=== PATIENT | female | born 1990 | race Two or more races ===

== ENCOUNTER 2024-12-11 13:33 | Outpatient (AMB) | payer OTHER, SELFPAY ==
--- NOTE | 2024-12-11 13:17 | MHC.PC.OV ---
Vital Signs 12/11/24 13:31 Height 5 ft 4.57 in Weight 121 lb 4 oz BMI 20.4 BP 86/62 L Blood Pressure Location Lt brachial Position Sitting Respiration 12 Pulse 86 Pulse Source Pulse Oximeter Temp 98.8 F Temp Source Oral Pulse Oximetry (%) 96 Oxygen Delivery Method Room Air Intake Visit Reasons: [employer] issues Intake Note: New patient visit. Hasn't had mensural cycle for 20 days, having troubles getting . States blood levels are low. Heavy Mobile Equipment Repairer Required: Yes Heavy Mobile Equipment Repairer Language: Arabic Heavy Mobile Equipment Repairer Name: [id number] Accompanied by: Spouse Allergies No Known Allergies Allergy (Verified 12/11/24 13:24) Tobacco use date assessed: 12/11/24 Dental Screening Dental Screen Date: 12/11/24 Did you have a dental visit in the last 12 months?: Yes Did you have a dental problem in the last 6 months where you did not have access to dental care?: No Was dental information given to patient?: Patient has dentist HPI [employer] issues HPI Details Patient is a 34-year-old female who presents today to establish care. She denies any significant past medical history. She moved here from [place] about 5 months ago. Her significant other is with her and helps with translation along with a phone cut off saw operator. Heel Nail Rasper: States that she is mostly here to get a referral to OBGYN. They would like to start a family and right now her menses is 3 weeks late. She took an at home test and it was negative. She states that she has always had irregular cycle until moving here and now it seems like things are different. Psych: mother had an CT last year and . This has been very sad for her. She is coping and has a good support system. Declines any intervention. She was tearful in mentioning family history but states normally she does not cry. PFSH Surgical History (Updated 12/11/24 @ 13:38 by Phuong Lazaro CMA) History of gastric surgery Family History (Updated 12/11/24 @ 13:37 by Phuong Lazaro CMA) Father Lung cancer Mother Heart attack Social History Housing: House Alcohol intake: never Patient Tobacco Use Status: Former Tobacco user Cigarettes Per Day: 2 Years Smoked: 10 e-Cigarette/Vaping Use: Never Used Second Hand Smoke Exposure: No service: No Current occupational status: unemployed Cognitive needs: No Hearing needs: No Vision needs: Yes (glasses) Questionnaire Thrive Questionnaire Date Thrive assessed: 12/11/24 I am a: Patient What is your living situation today?: I do not have a steady places to live Within the past 12 months, did the food you bought not last and you didn't have the money to get more?: Never true Within the past 12 months, did you worry whether your food would run out before you got money to buy more?: Never true Do you have trouble paying for medicines?: No Do you have trouble getting transportation to medical appointments?: No Do you have trouble paying your heating and electricity bill?: No Do you have trouble taking care of your child, family member or friend?: No Do you have trouble with day-to-day activities such as bathing, preparing meals, shopping, managing finances, etc.?: No Are you currently unemployed and looking for a job?: Yes Are you interested in more education?: Yes Please select the resources that you would like help with: None THRIVE Score: 1 AUDIT C Alcohol Use Questionnaire (AUDIT-C) 1. How often do you have a drink containing alcohol?: Never 3. How often do you have six or more drinks on one occasion?: Never Total Score: 0 Physical exam (Primary Care) Tobacco/Smoking Status: Tobacco use Status Tobacco use date assessed 12/11/24 12/11/24 13:29 Patient Tobacco Use Status Former Tobacco user 12/11/24 13:29 e-Cigarette/Vaping Use Never Used 12/11/24 13:29 Const Orientation/consciousness: patient oriented x3 HENMT Ears: hearing grossly normal bilaterally Neck Thyroid: Thyroid normal Lymphatic: no lymphadenopathy noted Resp Auscultation: clear to auscultation bilaterally Cardio Rate: regular rate Rhythm: regular rhythm Heart sounds: S1 normal heart sound present and S2 normal heart sound present GI Inspection: Yes normal to inspection Palpation (GI): Soft to palpation and Other GI palpation findings present (nontender, no cva tenderness) Auscultation: normoactive bowel sounds Rectal Exam - Female: deferred Skin General skin exam: no rashes or lesions noted Neuro General: patient oriented x3, gait normal and no focal motor deficits Coding Level of Care Code New Pt Level 3 (52572) Complex EM visit Add On G2211 Diagnoses Amenorrhea N91.2 Grief reaction F43.20 Assessment & Plan Assessment & Plan (1) Amenorrhea: Code(s): N91.2 - Amenorrhea, unspecified Category: Medical Plan: labs ordered referral to obgyn (2) Grief reaction: Code(s): F43.20 - Adjustment disorder, unspecified Plan: Declines any intervention. Reports a good support system. We will let me know if anything changes Plan hm reviewed labs ordered return for pe Orders: Orders [facility]. Panel Fast Today N91.2 - Amenorrhea, unspecified, Z00.00 - Encounter for general adult medical examination without abnormal findings TSH reflex Free T4 Today N91.2 - Amenorrhea, unspecified, Z00.00 - Encounter for general adult medical examination without abnormal findings Complete Blood Count Auto Diff Today N91.2 - Amenorrhea, unspecified, Z00.00 - Encounter for general adult medical examination without abnormal findings Lipid Panel Today N91.2 - Amenorrhea, unspecified, Z00.00 - Encounter for general adult medical examination without abnormal findings UA CC w/rflx Micro + Cult Today N91.2 - Amenorrhea, unspecified, Z00.00 - Encounter for general adult medical examination without abnormal findings, Z13.220 - Encounter for screening for lipoid disorders HCG Quantitative Today N91.2 - Amenorrhea, unspecified, Z00.00 - Encounter for general adult medical examination without abnormal findings Referrals COURSEWARE DEVELOPER Referral N91.2 - Amenorrhea, unspecified, Z01.419 - Encounter for gynecological examination (general) (routine) without abnormal findings, Z30.09 - Encounter for other general counseling and advice on contraception
[2024-12-11 13:31] VITALS: BP 86/62; PULSE 86; RESP 12; TEMP 37.1; O2SAT 96; BMI 20.4
== END 2024-12-11 13:51 | disposition home or self-care (01) ==
LOC: HO.HMCFM 13:33
PROVIDERS: PCP Nurse Practitioner Family; Visit Provider Physician Assistant
DX: N91.2 Amenorrhea, unspecified (principal); F43.20 Adjustment disorder, unspecified

== ENCOUNTER 2024-12-11 13:55 | Outpatient (REF) | payer OTHER, SELFPAY ==
[2024-12-11 17:41] LABS: MANUAL DIFF FLAG NO
[2024-12-11 17:45] LABS: Appearance Urine Clear; Glucose Urine UA Negative (Negative); PH 6.5 (5.0-9.0); Specific Gravity - Urine 1.020 (1.005-1.025); UMIC TRIGGER UACC YES
[2024-12-11 17:46] LABS: Hematocrit 35.6 % (37.0-47.0); Hemoglobin 11.6 g/dl (12.0-16.0); Imm Gran Abs Auto 0.01 X10*3/uL (0.00-0.03); Imm Gran Pct Auto 0.2 % (0.0-0.4); Lymphocytes Absolute Auto 2.5 X10*3/uL (1.2-4.9); Mean Corpuscular HGB Conc 32.6 g/dl (31.0-35.0); Mean Corpuscular Hemoglobin 28.7 pg (27.0-33.0); Mean Corpuscular Volume 88.1 fL (80.0-98.0); NRBC Abs Auto 0.000 X10*3/uL (0.0-0.012); NRBC Pct Auto 0.0 /100WBC (0.0-0.2); Platelet Count 268 X10*3/uL (160-400); Red Blood Count 4.04 X10*6/uL (4.20-5.50); White Blood Count 6.1 X10*3/uL (4.8-10.8)
[2024-12-11 18:02] LABS: Alanine Aminotransferase 17 U/L (0-31); Albumin Level 4.5 g/dL (3.5-5.0); Alkaline Phosphatase 47 U/L (39-117); Anion Gap 10 (12-20); Aspartate Amino Transferase 21 U/L (5-31); Blood Urea Nitrogen 11 mg/dL (9-16); Calcium 9.0 mg/dL (8.4-10.2); Carbon Dioxide 24 mmol/L (22-29); Chloride 109 mmol/L (96-108); Cholesterol 156 mg/dL (<200); Estimated Glomerular Filt Rate > 60; HDL Cholesterol 53 mg/dL (>40); Potassium 4.1 mmol/L (3.3-5.1); Sodium 139 mmol/L (135-145); Total Protein 7.1 g/dL (6.5-8.0); Triglycerides 59 mg/dL (<150)
== END 2024-12-11 13:56 | disposition home or self-care (01) ==
LOC: HO.WFDLDS 13:55
PROVIDERS: Visit Provider Physician Assistant
DX: Z00.00 Encounter for general adult medical examination without abnormal findings (principal); N91.2 Amenorrhea, unspecified; Z13.220 Encounter for screening for lipoid disorders
CPT/HCPCS: 36415; 80053; 80061; 81001; 84443; 84702; 85025

== ENCOUNTER 2024-12-20 10:19 | Outpatient (REF) | payer OTHER, SELFPAY ==
[2024-12-20 12:44] LABS: Appearance Urine Clear; Glucose Urine UA Negative (Negative); PH 6.0 (5.0-9.0); Specific Gravity - Urine 1.010 (1.005-1.025); UMIC TRIGGER UACC YES
== END 2024-12-20 10:20 | disposition home or self-care (01) ==
LOC: HO.WFDLDS 10:19
PROVIDERS: Visit Provider Physician Assistant
DX: Z00.00 Encounter for general adult medical examination without abnormal findings (principal); N91.2 Amenorrhea, unspecified
CPT/HCPCS: 81001; 81003